=== PATIENT | male | born 1995 | race African-American/Black ===

== ENCOUNTER 2021-03-25 20:08 | Emergency (ER) | payer OTHER ==
[~2021-03-25] VITALS: Ht 175.3 cm; Wt 64.0 kg
[2021-03-25 20:51] LABS: BASOPHILS % 0.7 % (0.0-2.0); EOSINOPHILS % 13.2 % (0.0-5.0); HEMATOCRIT. 49.8 % (42.0-52.0); HEMOGLOBIN. 17.1 g/dL (14.0-18.0); MEAN CORPUSCULAR HEMOGLOBIN 31.8 pg (28.0-32.0); MEAN CORPUSCULAR VOLUME 92.9 fL (80.0-94.0); MEAN PLATELET VOLUME 9.3 fl (7.4-10.4); MONOCYTES % 7.5 % (2.0-8.0); NEUTROPHILS % 55.6 % (40.0-76.0); PLATELET 217 x1000/uL (130-400); RED BLOOD CELL COUNT 5.36 mill/uL (4.7-6.1); RED CELL DISTRIBUTION WIDTH 13.3 % (11.6-14.6)
[2021-03-25 21:02] LABS: CHLORIDE 105 mEq/L (98-107)
[2021-03-25] MEDS ORDERED: ALBUTEROL (0.083%) 2.5MG/3ML NEB HHN STA (21:16)
[2021-03-25] MEDS ORDERED: IPRATROPIUM BROMIDE (0.02%) 0.5MG/2.5ML NEB HHN STA (21:16)
[2021-03-25] MEDS ORDERED: PREDNISONE 20MG TABLET PO ONE (21:30)
[2021-03-25 22:00] VITALS: BP 135/96
[2021-03-25] MEDS ORDERED: P50 MT (22:25)
== END 2021-03-25 22:45 | disposition home or self-care (01) ==
LOC: ER 20:08
DX: J98.01 Acute bronchospasm (principal); Z88.0 Allergy status to penicillin; Z98.890 Other specified postprocedural states
CPT/HCPCS: 36415; 71045; 80053; 83880; 84484; 85025; 93005; 94640; 99285; Z7610

== ENCOUNTER 2021-07-07 06:57 | Emergency (ER) | payer OTHER ==
[~2021-07-07] VITALS: Ht 165.1 cm; Wt 77.0 kg
[~2021-07-07 06:57] MED LIST: P50 MT
[2021-07-07 07:58] VITALS: BP 117/75
== END 2021-07-07 10:43 | disposition left against medical advice (07) ==
LOC: ER 08:29
DX: Z53.21 Procedure and treatment not carried out due to patient leaving prior to being seen by health care provider (principal)